=== PATIENT | male | born 1950 | race Caucasian/White ===

== ENCOUNTER 2016-12-17 13:57 | Emergency (ER) | payer MEDICARE, MEDICAID ==
[~2016-12-17] VITALS: Ht 180.3 cm; Wt 92.7 kg
[~2016-12-17 13:57] MED LIST: ADVAIR DISK1 INH; ALPRAZOLA1 PO; AMLODIPINE5 MG PO; CIPRO XR500 MG PO; COZAAR50 MG PO; DILAUDID2 MG OR; FISH OIL500 MG PO; GABAPENTIN300 MG PO; LAMICTAL XR100 MG PO; LEVALBUTEROL IN; LISINOPRIL20 MG PO; LOSARTAN POT50 MG PO; METO50TA52 PO; METOPROL TAR25 MG PO; MULTI VIT PO; OMEGA 31000 MG PO; PX ASPIRIN325 MG PO; RISPERDAL M1 MG PO; SEROQUEL50 MG PO; SERTRALINE50 MG PO; TRAMADOL HCL50 MG PO; VITAMIN D PO; VITAMIN D31000 UNI1 PO; XANAX1 MG PO
[2016-12-17] MEDS ORDERED: BACTRIM DS1 TAB PO (14:26)
[2016-12-17 15:06] VITALS: BP 129/88
== END 2016-12-17 15:06 | disposition home or self-care (01) ==
LOC: ED 13:57
DX: R22.32 Localized swelling, mass and lump, left upper limb (principal)

== ENCOUNTER 2017-09-25 07:55 | Day surgery (SDC) | payer MEDICARE, MEDICAID ==
[~2017-09-25] VITALS: Ht 177.8 cm; Wt 95.3 kg
[~2017-09-25 07:55] MED LIST changes: +BACTRIM DS1 TAB PO; +BREO ELLIPTA1 INH; +OXCARBAZEPINE150 MG PO; +VENTOLIN HFA IN; +VITAMIN D1000 UNI1 PO
[2017-09-25] MEDS ORDERED: PLAVIX75 MG PO (08:35)
[2017-09-25] MEDS ORDERED: PERCOCET1 TA4 PO (12:18)
[2017-09-25 12:21] VITALS: BP 160/79
== END 2017-09-25 12:40 | disposition home or self-care (01) ==
LOC: ORM 07:55
PROC: 0SBC4ZZ Excision of Right Knee Joint, Percutaneous Endoscopic Approach (ICD-10-PCS; principal; 2017-09-25)
PROC: 0SBC4ZZ Excision of Right Knee Joint, Percutaneous Endoscopic Approach (ICD-10-PCS; 2017-09-25)
DX: S83.231A Complex tear of medial meniscus, current injury, right knee, initial encounter (principal); S83.281A Other tear of lateral meniscus, current injury, right knee, initial encounter; M17.11 Unilateral primary osteoarthritis, right knee; M65.861 Other synovitis and tenosynovitis, right lower leg; M94.261 Chondromalacia, right knee; J45.909 Unspecified asthma, uncomplicated; I10 Essential (primary) hypertension; F17.210 Nicotine dependence, cigarettes, uncomplicated; W19.XXXA Unspecified fall, initial encounter

== ENCOUNTER 2017-10-24 01:21 | Emergency (ER) | payer MEDICARE, MEDICAID ==
[~2017-10-24] VITALS: Ht 177.8 cm; Wt 100.0 kg
[~2017-10-24 01:21] MED LIST changes: +PERCOCET1 TA4 PO; +PLAVIX75 MG PO
[2017-10-24] MEDS ORDERED: IBUPROFEN600 MG PO (07:19)
[2017-10-24 08:25] VITALS: BP 130/72
== END 2017-10-24 08:25 | disposition home or self-care (01) ==
LOC: ED 01:21
PROC: 2W39X1Z Immobilization of Left Upper Extremity using Splint (ICD-10-PCS; principal; 2017-10-24)
DX: S59.902A Unspecified injury of left elbow, initial encounter (principal); T14.8XXA Other injury of unspecified body region, initial encounter; F10.129 Alcohol abuse with intoxication, unspecified; F17.290 Nicotine dependence, other tobacco product, uncomplicated; W19.XXXA Unspecified fall, initial encounter; Y92.009 Unspecified place in unspecified non-institutional (private) residence as the place of occurrence of the external cause

== ENCOUNTER 2019-04-22 14:40 | Emergency (ER) | payer MEDICARE, MEDICAID ==
[~2019-04-22] VITALS: Ht 177.8 cm; Wt 110.0 kg
[~2019-04-22 14:40] MED LIST changes: +IBUPROFEN600 MG PO
[2019-04-22] MEDS ORDERED: ISOSORB MONO30 MG PO (15:18)
[2019-04-22] MEDS ORDERED: CLOPIDOGREL75 MG PO (15:18)
[2019-04-22] MEDS ORDERED: LOSARTAN POTAS100 MG PO (15:18)
[2019-04-22] MEDS ORDERED: OXCARBAZEPINE600 MG PO (15:19)
[2019-04-22] MEDS ORDERED: METOPROL TAR25 M1 PO (15:19)
[2019-04-22] MEDS ORDERED: RISPERDAL0.5 MG PO (15:19)
[2019-04-22] MEDS ORDERED: AMLODIPINE BESY10 MG PO (15:20)
[2019-04-22] MEDS ORDERED: ATORVASTATIN CA40 MG PO (15:20)
[2019-04-22] MEDS ORDERED: HYDROCHLOROT12.5 MG PO (15:20)
[2019-04-22] MEDS ORDERED: LAMICTAL150 MG PO (15:21)
[2019-04-22] MEDS ORDERED: NITROGLYCERIN0.4 MG SL (15:21)
[2019-04-22] MEDS ORDERED: GABAPENTIN800 MG PO (15:21)
[2019-04-22] MEDS ORDERED: FAMOTIDINE20 M1 PO (15:22)
[2019-04-22] MEDS ORDERED: BREO ELLIPTA1 INH IN (15:22)
[2019-04-22] MEDS ORDERED: VENTOLIN H108 MCG/AC IN (15:22)
[2019-04-22] MEDS ORDERED: ZPAK PO ×2 (16:35→16:51)
[2019-04-22] MEDS ORDERED: PREDNISONE10 MG PO ×2 (16:35→16:51)
[2019-04-22 16:44] VITALS: BP 144/74
== END 2019-04-22 16:44 | disposition home or self-care (01) ==
LOC: ED 14:40
DX: J18.9 Pneumonia, unspecified organism (principal); J44.0 Chronic obstructive pulmonary disease with (acute) lower respiratory infection; I10 Essential (primary) hypertension; F17.290 Nicotine dependence, other tobacco product, uncomplicated

== ENCOUNTER 2022-11-12 15:38 | Observation (INO) | payer MEDICARE, MEDICAID ==
[~2022-11-12] VITALS: Ht 177.8 cm; Wt 107.0 kg
[~2022-11-12 15:38] MED LIST changes: +AMLODIPINE BESY10 MG PO; +ATORVASTATIN CA40 MG PO; +BREO ELLIPTA1 INH IN; +CLOPIDOGREL75 MG PO; +FAMOTIDINE20 M1 PO; +GABAPENTIN800 MG PO; +HYDROCHLOROT12.5 MG PO; +ISOSORB MONO30 MG PO; +LAMICTAL150 MG PO; +LOSARTAN POTAS100 MG PO; +METOPROL TAR25 M1 PO; +NITROGLYCERIN0.4 MG SL; +OXCARBAZEPINE600 MG PO; +PREDNISONE10 MG PO; +RISPERDAL0.5 MG PO; +VENTOLIN H108 MCG/AC IN; +ZPAK PO
[2022-11-12 16:08] LABS: BASO% 0.6 % (0-3); EOS% 5.7 % (0-8); HEMATOCRIT 39.7 % (39.0-50.0); HEMOGLOBIN 13.2 g/dl (14.0-18.0); IMMATURE GRANULOCYTES 0.8 % (0.0-5.0); LYMPH% 35.4 % (15-41); MEAN CELL VOLUME 92.3 fL CALC (80.0-100.0); MEAN CORPUSCULAR HGB 30.7 pG CALC (26.0-32.0); MEAN CORPUSCULAR HGB CONC 33.2 g/dL CAL (32.0-36.0); MONO% 9.3 % (2-13); NEUT# 3.06 thou/uL (1.82-7.42); NEUT% 48.2 % (42-76); RED BLOOD COUNT 4.3 mill/uL (4.70-6.10); RED CELL DISTRI WIDTH 12.7 % (11.5-15.5)
[2022-11-12 16:25] LABS: ALBUMIN 4.6 g/dL (3.2-5.0); ALKALINE PHOSPHATASE 63 u/l (38-126); ANION GAP 14 (6-22 (CALC)); BUN 13 mg/dL (8-23); BUN/CREATININE RATIO 20 (12-20 (CALC)); CARBON DIOXIDE 25 mmol/l (22-30); CHLORIDE 94 mmol/l (95-108); CREATININE 0.7 mg/dL (0.7-1.3); GFR FOR AFR.AMER. > 60 ML/MIN (>=60 (CALC)); GFR OTHER RACES > 60 ML/MIN (>=60 (CALC)); POTASSIUM 4.2 mmol/l (3.5-5.1); SGOT/AST 40 u/l (19-48); SODIUM 129 mmol/l (137-146); TOTAL PROTEIN 8.4 g/dL (6.3-8.2)
[2022-11-12 16:30] LABS: BILIRUBIN, TOTAL 0.8 mg/dL (0.2-1.3)
[2022-11-12] MEDS ORDERED: LIPITOR80 M1 PO (16:54)
[2022-11-12] MEDS ORDERED: ISORDIL40 MG PO (16:58)
[2022-11-12] MEDS ORDERED: LAMICTAL100 M1 PO (16:59)
[2022-11-12] MEDS ORDERED: BREZTRI AEROSPH1 AER (17:02)
[2022-11-12] MEDS ORDERED: MOTRIN800 MG PO (17:03)
[2022-11-12] MEDS ORDERED: MONTELUKAST SOD10 MG PO (17:04)
[2022-11-12] MEDS ORDERED: ULTRAM50 MG PO (17:04)
[2022-11-12] MEDS ORDERED: ATIVAN2 MG PO (17:04)
[2022-11-12] MEDS ORDERED: ALDACTONE50 MG PO (17:05)
[2022-11-12 19:45] VITALS: BP 158/89
[2022-11-12 21:01] VITALS: BP 161/97
[2022-11-12 23:58] VITALS: BP 149/75
[2022-11-13] VITALS: BP 149/75
[2022-11-13 04:00] VITALS: BP 146/86
[2022-11-13 04:14] VITALS: BP 146/86
[2022-11-13 05:53] LABS: CHOLESTEROL HDL RATIO 2.6 (<4.4 (CALC)); MAGNESIUM 1.8 mg/dL (1.6-2.3)
[2022-11-13 07:20] VITALS: BP 127/84
[2022-11-13 10:20] VITALS: BP 123/75
[2022-11-13 10:34] VITALS: BP 123/75
[2022-11-13] MEDS ORDERED: NITROSTAT0.4 MG SL (10:57)
== END 2022-11-13 12:20 | disposition home or self-care (01) ==
LOC: ED 15:38 → MS2 17:04
PROVIDERS: Family Medicine; ADMIT Internal Medicine; ATTEND Internal Medicine
DX: R07.9 Chest pain, unspecified (principal); I10 Essential (primary) hypertension; I25.10 Atherosclerotic heart disease of native coronary artery without angina pectoris; J44.9 Chronic obstructive pulmonary disease, unspecified; K21.9 Gastro-esophageal reflux disease without esophagitis; E66.9 Obesity, unspecified; F17.200 Nicotine dependence, unspecified, uncomplicated
CPT/HCPCS: J1650

== ENCOUNTER 2023-07-01 17:02 | Emergency (ER) | payer MEDICARE, MEDICAID ==
[~2023-07-01] VITALS: Ht 177.8 cm; Wt 105.2 kg
[~2023-07-01 17:02] MED LIST changes: +ALDACTONE50 MG PO; +ATIVAN2 MG PO; +BREZTRI AEROSPH1 AER; +ISORDIL40 MG PO; +LAMICTAL100 M1 PO; +LIPITOR80 M1 PO; +MONTELUKAST SOD10 MG PO; +MOTRIN800 MG PO; +NITROSTAT0.4 MG SL; +ULTRAM50 MG PO
[2023-07-01 17:59] LABS: BASO% 0.3 % (0-3); EOS% 0.5 % (0-8); HEMATOCRIT 36.3 % (39.0-50.0); HEMOGLOBIN 12.2 g/dl (14.0-18.0); IMMATURE GRANULOCYTES 0.4 % (0.0-5.0); LYMPH% 10.8 % (15-41); MEAN CELL VOLUME 90.8 fL CALC (80.0-100.0); MEAN CORPUSCULAR HGB 30.5 pG CALC (26.0-32.0); MEAN CORPUSCULAR HGB CONC 33.6 g/dL CAL (32.0-36.0); MONO% 5.3 % (2-13); NEUT# 7.64 thou/uL (1.82-7.42); NEUT% 82.7 % (42-76); RED CELL DISTRI WIDTH 12.6 % (11.5-15.5)
[2023-07-01 18:04] LABS: URINE BILIRUBIN - DIPSTICK Negative (NEGATIVE); URINE BLOOD DIPSTICK Large (NEGATIVE); URINE COLOR Red; URINE GLUCOSE - DIPSTICK Negative (NEGATIVE); URINE KETONE Negative (NEGATIVE); URINE LEUK ESTERASE Negative (NEGATIVE); URINE NITRITE - DIPSTICK Negative (Negative); URINE PROTEIN - DIPSTICK >=300 mg/dL (NEG-TRACE); URINE SPECIFIC GRAVITY 1.025; URINE UROBILINOGEN - DIPSTICK 0.2 E.U./dL (0.2)
[2023-07-01 18:05] LABS: URINE RBC TNTC RBC/hpf (0-5)
[2023-07-01 18:20] LABS: ALBUMIN 4.3 g/dL (3.2-5.0); ALKALINE PHOSPHATASE 70 u/l (38-126); ANION GAP 13 (6-22 (CALC)); BILIRUBIN, TOTAL 0.5 mg/dL (0.2-1.3); BUN 17 mg/dL (8-23); BUN/CREATININE RATIO 22 (12-20 (CALC)); CARBON DIOXIDE 24 mmol/l (22-30); CHLORIDE 100 mmol/l (95-108); CREATININE 0.8 mg/dL (0.7-1.3); GFR FOR AFR.AMER. > 60 ML/MIN (>=60 (CALC)); GFR OTHER RACES > 60 ML/MIN (>=60 (CALC)); INTERNATIONAL NORMALIZED RATIO 1.2 RATIO (0.7-1.3); POTASSIUM 4.4 mmol/l (3.5-5.1); PROTHROMBIN TIME 10.9 SECONDS (9.0-12.5); SGOT/AST 35 u/l (19-48); SODIUM 133 mmol/l (137-146); TOTAL PROTEIN 7.3 g/dL (6.3-8.2)
[2023-07-01] MEDS ORDERED: SODIUM CHLORIDE 1,000 ML BTL IR ONE (18:20)
[2023-07-01] MEDS ORDERED: hydrALAZINE HCL 20 MG/ML VIAL(1 ML) IV ONE (21:25)
[2023-07-01] MEDS ORDERED: CLONIDINE0.2 MG PO (21:29)
[2023-07-01] MEDS ORDERED: PYRIDIUM200 MG PO (21:29)
[2023-07-01 21:50] VITALS: BP 146/72
== END 2023-07-01 21:50 | disposition home or self-care (01) ==
LOC: ED 17:02
PROVIDERS: Nurse Practitioner
PROC: 0T9B70Z Drainage of Bladder with Drainage Device, Via Natural or Artificial Opening (ICD-10-PCS; principal; 2023-07-01)
DX: R31.9 Hematuria, unspecified (principal); I10 Essential (primary) hypertension; J44.9 Chronic obstructive pulmonary disease, unspecified
CPT/HCPCS: Q9967

== ENCOUNTER 2023-07-02 11:16 | Emergency (ER) | payer MEDICARE, MEDICAID ==
[2023-07-02] VITALS (11 sets, daily range): BP systolic 120–143; BP diastolic 69–101
[~2023-07-02] VITALS: Ht 177.8 cm; Wt 105.0 kg
[~2023-07-02 11:16] MED LIST changes: +CLONIDINE0.2 MG PO; +PYRIDIUM200 MG PO
[2023-07-02 12:02] LABS: BASO% 0.5 % (0-3); HEMATOCRIT 35.2 % (39.0-50.0); HEMOGLOBIN 12.1 g/dl (14.0-18.0); IMMATURE GRANULOCYTES 0.2 % (0.0-5.0); LYMPH% 12.9 % (15-41); MEAN CELL VOLUME 91.4 fL CALC (80.0-100.0); MEAN CORPUSCULAR HGB 31.4 pG CALC (26.0-32.0); MEAN CORPUSCULAR HGB CONC 34.4 g/dL CAL (32.0-36.0); MONO% 7.3 % (2-13); NEUT# 6.4 thou/uL (1.82-7.42); NEUT% 77.1 % (42-76); RED BLOOD COUNT 3.85 mill/uL (4.70-6.10); RED CELL DISTRI WIDTH 12.8 % (11.5-15.5)
[2023-07-02 12:19] LABS: ANION GAP 11 (6-22 (CALC)); BUN 12 mg/dL (8-23); BUN/CREATININE RATIO 17 (12-20 (CALC)); CARBON DIOXIDE 27 mmol/l (22-30); CHLORIDE 100 mmol/l (95-108); CREATININE 0.7 mg/dL (0.7-1.3); GFR FOR AFR.AMER. > 60 ML/MIN (>=60 (CALC)); GFR OTHER RACES > 60 ML/MIN (>=60 (CALC)); SODIUM 134 mmol/l (137-146)
== END 2023-07-02 16:00 | disposition short-term general hospital (02) ==
LOC: ED 11:16
PROVIDERS: Emergency Medicine
DX: R31.9 Hematuria, unspecified (principal); R33.9 Retention of urine, unspecified; I10 Essential (primary) hypertension; J44.9 Chronic obstructive pulmonary disease, unspecified; Z96.0 Presence of urogenital implants